=== PATIENT | female | born 1990 | race Two or more races ===

== ENCOUNTER 2021-05-07 02:26 | Inpatient (IN) | payer OTHER ==
[~2021-05-07] VITALS: Ht 160 cm; Wt 59.0 kg
[2021-05-07] MEDS ORDERED: FLONASE16 GM (15:04)
[2021-05-07] MEDS ORDERED: PROAIR HFA8.5 GM (15:04)
[2021-05-07] MEDS ORDERED: ALL DAY ALLERGY10 MG (15:04)
== END 2021-05-08 09:25 | disposition home or self-care (01) | DRG 742 ==
LOC: ER 02:26 → SEC-K 09:26 → O/R 15:05 → OB/GYN 05-08 00:09
PROVIDERS: ADMIT Obstetrics & Gynecology; ATTEND Obstetrics & Gynecology
PROC: 0U914ZZ Drainage of Left Ovary, Percutaneous Endoscopic Approach (ICD-10-PCS; principal; 2021-05-07 13:00)
DX: N83.202 Unspecified ovarian cyst, left side (principal); K66.1 Hemoperitoneum; R10.2 Pelvic and perineal pain